=== PATIENT | female | born 1990 | race Caucasian/White ===

== ENCOUNTER 2017-09-17 20:41 | Emergency (ER) | payer MEDICAID ==
[~2017-09-17] VITALS: Ht 160 cm; Wt 81.6 kg
[2017-09-17 20:55] VITALS: Ht 160 cm; Wt 81.6 kg
[2017-09-17] MEDS ORDERED: DESERYL100 MG PO (20:56)
[2017-09-17] MEDS ORDERED: OMNICEF300 MG PO (21:40)
[2017-09-17] MEDS ORDERED: CORTISPORIN OTI10 M1 LEFT EAR (21:40)
[2017-09-17] MEDS ORDERED: TORADOL10 MG PO (21:42)
[2017-09-17 21:59] VITALS: BP 121/68
== END 2017-09-17 22:00 | disposition home or self-care (01) ==
LOC: D.ER 20:41
DX: H66.92 Otitis media, unspecified, left ear (principal); H60.92 Unspecified otitis externa, left ear

== ENCOUNTER 2018-10-12 10:50 | Emergency (ER) | payer MEDICAID ==
[~2018-10-12] VITALS: Ht 160 cm; Wt 76.4 kg
[~2018-10-12 10:50] MED LIST: CORTISPORIN OTI10 M1 LEFT EAR; DESERYL100 MG PO; OMNICEF300 MG PO; TORADOL10 MG PO
[2018-10-12 11:12] VITALS: Ht 160 cm; Wt 76.4 kg
[2018-10-12] MEDS ORDERED: VOLTAREN75 MG PO (13:08)
[2018-10-12] MEDS ORDERED: CYCLOBENZAPRINE10 MG PO (13:08)
[2018-10-12 13:20] VITALS: BP 126/68
== END 2018-10-12 13:21 | disposition home or self-care (01) ==
LOC: D.ER 10:50
DX: M25.511 Pain in right shoulder (principal)

== ENCOUNTER 2018-12-11 02:41 | Emergency (ER) | payer MEDICAID ==
[~2018-12-11] VITALS: Ht 160 cm; Wt 78.6 kg
[~2018-12-11 02:41] MED LIST changes: +CYCLOBENZAPRINE10 MG PO; +VOLTAREN75 MG PO
[2018-12-11 02:47] VITALS: Ht 160 cm; Wt 78.6 kg
[2018-12-11 03:22] LABS: APPEARANCE CLOUDY (CLEAR); BILIRUBIN NEGATIVE (NEGATIVE); COLOR YELLOW (YELLOW); GLUCOSE NEGATIVE (NEGATIVE); KETONE NEGATIVE (NEGATIVE); NITRITE NEGATIVE (NEGATIVE); PROTEIN NEGATIVE (NEGATIVE); UROBILINOGEN NORMAL (NORMAL)
[2018-12-11 03:24] LABS: BACTERIA MODERATE /hpf (NEGATIVE); EPITHELIAL CELLS 0-5 /hpf (0-5); RED CELLS - URINE 0-5 /hpf (0-5); WHITE CELLS - URINE 25-50 /hpf (NEGATIVE)
[2018-12-11] MEDS ORDERED: SULFAMETHOXAZOL1 TA2 PO (03:26)
[2018-12-11] MEDS ORDERED: AUGMENTIN 875-11 TAB PO (03:27)
[2018-12-11] MEDS ORDERED: HYDROCODONE-A1 UDTA2 PO (03:30)
[2018-12-11 03:42] VITALS: BP 113/72
== END 2018-12-11 03:40 | disposition home or self-care (01) ==
LOC: D.ER 02:41
PROVIDERS: Emergency Medicine
DX: N39.0 Urinary tract infection, site not specified (principal); J32.9 Chronic sinusitis, unspecified

== ENCOUNTER 2018-12-19 15:14 | Emergency (ER) | payer MEDICAID ==
[~2018-12-19] VITALS: Ht 160 cm; Wt 77.3 kg
[~2018-12-19 15:14] MED LIST changes: +AUGMENTIN 875-11 TAB PO; +HYDROCODONE-A1 UDTA2 PO; +SULFAMETHOXAZOL1 TA2 PO
[2018-12-19 15:26] VITALS: BP 140/84; Ht 160 cm; Wt 77.3 kg
[2018-12-19 16:12] LABS: APPEARANCE CLEAR (CLEAR); BILIRUBIN NEGATIVE (NEGATIVE); COLOR STRAW (YELLOW); GLUCOSE NEGATIVE (NEGATIVE); KETONE NEGATIVE (NEGATIVE); NITRITE NEGATIVE (NEGATIVE); PROTEIN NEGATIVE (NEGATIVE); UROBILINOGEN NORMAL (NORMAL)
[2018-12-19] MEDS ORDERED: DIFLUCAN150 MG PO (16:31)
[2018-12-19] MEDS ORDERED: MONISTAT 31 EA VG (16:31)
== END 2018-12-19 16:44 | disposition home or self-care (01) ==
LOC: D.ER 15:14
PROVIDERS: Emergency Medicine
DX: B37.3 Candidiasis of vulva and vagina (principal)